=== PATIENT | male | born 1980 | race Two or more races ===

== ENCOUNTER 2019-05-10 16:47 | Emergency (ER) | payer OTHER ==
[~2019-05-10] VITALS: Ht 182.9 cm; Wt 63.5 kg
[2019-05-10] MEDS ORDERED: HYDROCODONE/APAP 10/325MG 1 EA TABLET PO ONE (18:00)
[2019-05-10] MEDS ORDERED: ONDANSETRON 4 MG TAB.RAPDIS PO ONE (18:00)
[2019-05-10] MEDS ORDERED: ONDANSETRON 4 MG TAB.RAPDIS ONE (18:07)
[2019-05-10] MEDS ORDERED: HYDROCODONE/APAP 10/325MG 1 EA TABLET ONE (18:07)
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
[2019-05-10] MEDS ORDERED: LIDOCAINE HCL/MPF 1% 30 ML VIAL IJ ONE (19:36)
[2019-05-10] MEDS ORDERED: TDAP [DIPH/PERTUSSIS/TET] 0.5 ML VIAL IM ONE ×2 (19:59→20:00)
--- NOTE | 2019-05-10 20:29 | NUR ---
CALLED LOIS CURRY
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
[2019-05-10] MEDS ORDERED: CEPHALEXIN MONOHYDRATE 500 MG CAPSULE PO ONE ×2 (21:26→21:30)
[2019-05-10 22:01] VITALS: BP 132/76
--- NOTE | 2019-05-10 22:02 | NUR ---
PT RR EVEN & UNLABORED, VSS. DENIES PRADO, DIZZINESS, N/V, CP, SOB AT THIS TIME. WILL CONT TO MONITOR. AWAITING TRANSFER TO [facility]
--- NOTE | 2019-05-10 22:54 | NUR ---
PT EN ROUTE TO [facility] VIA BLS FOR CONT OF CARE. REPORT GIVEN TO ZULMA DERAS.
== END 2019-05-10 22:56 | disposition short-term general hospital (02) ==
LOC: ER 16:47
DX: S62.511A Displaced fracture of proximal phalanx of right thumb, initial encounter for closed fracture (principal); S62.612A Displaced fracture of proximal phalanx of right middle finger, initial encounter for closed fracture; S82.891A Other fracture of right lower leg, initial encounter for closed fracture; S62.231A Other displaced fracture of base of first metacarpal bone, right hand, initial encounter for closed fracture; S62.396A Other fracture of fifth metacarpal bone, right hand, initial encounter for closed fracture; S82.831A Other fracture of upper and lower end of right fibula, initial encounter for closed fracture; S61.212A Laceration without foreign body of right middle finger without damage to nail, initial encounter; S80.211A Abrasion, right knee, initial encounter; S09.8XXA Other specified injuries of head, initial encounter; M25.512 Pain in left shoulder; V23.4XXA Motorcycle driver injured in collision with car, pick-up truck or van in traffic accident, initial encounter; Y93.I9 Activity, other involving external motion; Y92.89 Other specified places as the place of occurrence of the external cause; Y99.8 Other external cause status
CPT/HCPCS: 26725; 29515; 70450; 72125; 73030; 73110; 73130 ×2; 73564; 73590; 73610; 90471; 90715; 99285; A6403; J3490; Q0162